=== PATIENT | female | born 1950 | race Caucasian/White ===

== ENCOUNTER 2019-02-23 09:19 | Day surgery (SDC) | payer OTHER ==
[2019-02-22 11:49] VITALS: BMI 27.3
[~2019-02-23 09:19] MED LIST: ACETAMINOPHEN 325 MG TABLET (FP) PO PRN; CYCLOPENTOLATE HCL 1% OPHTH SOLN 2 ML BOTTLE OP SCH; KETOROLAC TROMETHAMINE 0.5% EYE DROP 1 DROP DROPS OP SCH; OFLOXACIN 0.3% OPHTHALMIC SOLUTION 5 ML BOTTLE OP SCH; PHENYLEPHRINE 2.5% OPHTH SOLN 15 ML BOTTLE OP SCH; TROPICAMIDE 1% OPHTH SOLN 15 ML BOTTLE OP SCH
[2019-02-23 09:44] VITALS: TEMP 97.8
[2019-02-23] MEDS ORDERED: PHENYLEPHRINE 2.5% OPHTH SOLN 15 ML BOTTLE ONE (09:48)
[2019-02-23] MEDS ORDERED: TROPICAMIDE 1% OPHTH SOLN 15 ML BOTTLE ONE (09:48)
[2019-02-23] MEDS ORDERED: CYCLOPENTOLATE HCL 1% OPHTH SOLN 2 ML BOTTLE ONE (09:48)
[2019-02-23] MEDS ORDERED: OFLOXACIN 0.3% OPHTHALMIC SOLUTION 5 ML BOTTLE ONE (09:48)
[2019-02-23] MEDS ORDERED: KETOROLAC TROMETHAMINE 0.5% EYE DROP 1 DROP DROPS ONE (09:48)
[2019-02-23] MEDS ORDERED: TROPICAMIDE 1% OPHTH SOLN 15 ML BOTTLE OD ONE ×3 (09:55→10:14)
[2019-02-23] MEDS ORDERED: PHENYLEPHRINE 2.5% OPHTH SOLN 15 ML BOTTLE OD ONE ×3 (09:55→10:14)
[2019-02-23] MEDS ORDERED: OFLOXACIN 0.3% OPHTHALMIC SOLUTION 5 ML BOTTLE OD ONE ×3 (09:55→10:14)
[2019-02-23] MEDS ORDERED: KETOROLAC TROMETHAMINE 0.5% EYE DROP 1 DROP DROPS OD ONE ×3 (09:55→10:14)
[2019-02-23] MEDS ORDERED: CYCLOPENTOLATE HCL 1% OPHTH SOLN 2 ML BOTTLE OD ONE ×3 (09:55→10:13)
[2019-02-23] MEDS ORDERED: BUPIVACAINE HCL/PF 0.75% 10 ML VIAL ONE (11:07)
[2019-02-23] MEDS ORDERED: LIDOCAINE HCL/PF 2% SDV 5ML VIAL ONE (11:08)
[2019-02-23] MEDS ORDERED: LIDOCAINE HCL/PF 2% SDV 5ML VIAL INF ONE (11:23)
[2019-02-23] MEDS ORDERED: BUPIVACAINE HCL/PF 0.75% 10 ML VIAL NR ONE (11:23)
[2019-02-23] MEDS ORDERED: POVIDONE-IODINE 5% OPHTHALMIC PREP 30 ML SOLUTION OD ONE (11:24)
[2019-02-23] MEDS ORDERED: CHONDROITIN SU A/HYALUR SOD 1 KIT IO ONE (11:31)
[2019-02-23] MEDS ORDERED: BSS (NA/CA/MG/K) BALANCED SALT SOLUTION OPHTH SOLN 15 ML BOTTLE OD ONE (11:31)
[2019-02-23] MEDS ORDERED: LIDOCAINE HCL 1% PRESERVATIVE FREE - 30ML VIAL IO ONE (11:31)
[2019-02-23] MEDS ORDERED: EPINEPHrine/PF 1 MG/1 ML (1:1,000) AMPULE SQ ONE (11:35)
[2019-02-23] MEDS ORDERED: ONDANSETRON 4 MG/2 ML VIAL IVPUSH PRN (11:58)
[2019-02-23] MEDS ORDERED: LACTATED RINGERS SOLUTION 1,000 ML IV SCH (12:00)
--- NOTE | 2019-02-23 12:45 | SPEC ---
DATE OF OPERATION: PREOPERATIVE DIAGNOSIS: Cataract, right eye. POSTOPERATIVE DIAGNOSIS: Cataract, right eye. PROCEDURE: Phacoemulsification of right cataract with posterior chamber intraocular lens implantation. The lens used [id number], 23.5 diopter, serial No. [id number]. SURGEON: Ho Perry M.D. ANESTHESIA: Peribulbar/Modified Van Lint/MAC. COMPLICATIONS: None. DESCRIPTION OF PROCEDURE: The patient was brought to the operating room and correctly identified along with the operative site and a correct intraocular lens moore. The patient was then given a peribulbar block under sedation with 5 mL of a 1:1 mixture of 2% Lidocaine and 0.5% Bupivacaine. Two to 3 mL of the same mixture was given as a modified Van Lint block. The eye was then prepped and draped in the usual sterile fashion including 5% Betadine solution in the conjunctival sac and an eyelid drape. An eyelid speculum was then placed into the eye. A paracentesis port was created. Viscoelastic was injected to inflate the anterior chamber. A temporal clear corneal wound was created. A continuous circular capsulorrhexis was performed. The nucleus was then hydro-dissected and removed phacoemulsification via the cjnklm-[id number]-[id number] approach. The remaining cortical material was irrigated and aspirated from the eye. Viscoelastic was injected to inflate the capsular bag. The lens was injected into the capsular bag. Viscoelastic was then irrigated and aspirated from the eye. The intraocular lens was noted to be well centered and covered by the anterior capsular border. All wounds were found to be watertight. Topical Vancomycin was given. The eye patch and shield were placed. The patient was discharged from the operating room in stable condition. Alicia MULTANI/[id number]
[2019-02-23 13:18] VITALS: BP 115/65; PULSE 66
== END 2019-02-23 13:19 | disposition home or self-care (01) ==
LOC: JASU-SURG 09:19
PROVIDERS: ATTEND Ophthalmology
PROC: 08RJ3JZ Replacement of Right Lens with Synthetic Substitute, Percutaneous Approach (ICD-10-PCS; principal; 2019-02-23 11:00)
DX: H26.9 Unspecified cataract (principal)

== ENCOUNTER 2019-04-19 11:36 | Emergency (ER) | payer OTHER | END 2019-04-19 12:50 | disposition home or self-care (01) | LOC: JERFT 11:36 ==

== ENCOUNTER 2020-11-26 19:21 | Inpatient (IN) | payer OTHER ==
[2020-11-26 19:29] VITALS: BMI 24.5
[2020-11-26 20:19] LABS: HEMATOCRIT 33.5 % (32.4-45.2); HEMOGLOBIN 11.3 GM/dl (10.7-15.3); MCH 32.6 pg (25.7-33.7); MCHC 33.7 g/dl (32.0-36.0); MEAN CELL VOLUME 96.9 fl (80-96); MEAN PLT VOLUME 8.2 fl (7.5-11.1); PLATELET COUNT 235 K/MM3 (134-434); RBC 3.45 M/mm3 (3.60-5.2); RDW 16.5 % (11.6-15.6); WHITE BLOOD COUNT 13.8 K/mm3 (4.0-10.8)
[2020-11-26 20:29] LABS: ALBUMIN 3.1 g/dl (3.4-5.0); CALCIUM 8.9 mg/dl (8.5-10); CREATININE 1.1 mg/dl (0.55-1.3); POTASSIUM 2.6 mmol/L (3.5-5.1); TOT PROT 5.5 g/dl (6.4-8.2)
[2020-11-26 20:53] LABS: PLATELET ESTIMATE ADEQUATE
[2020-11-26] MEDS ORDERED: KCL 10 MEQ IVPB 10 MEQ/100 ML INFUS.BAG IVPB ONE ×2 (21:26→22:17)
[2020-11-26] MEDS ORDERED: KCL 10 MEQ IVPB 10 MEQ/100 ML INFUS.BAG IVPB SCH ×2 (21:30→22:30)
[2020-11-27 01:11] LABS: MAGNESIUM 2.3 mg/dL (1.8-2.4)
[2020-11-27 01:22] LABS: N-TERMINAL BNP 4379.8 pg/ml (5-125)
[2020-11-27 01:26] LABS: POTASSIUM 2.6 mmol/L (3.5-5.1)
[2020-11-27] MEDS ORDERED: POTASSIUM CHLORIDE 20 MEQ PREMIX IVPB 100 ML IVPB ONE (01:27)
[2020-11-27] MEDS: SODIUM CHLORIDE 1,000 ML IV SCH (01:44)
[2020-11-27 06:33] LABS: PH,URINE 6.5 (5.0-8.0); URINE APPEARANCE CLOUDY; URINE BILIRUBIN SMALL (NEGATIVE); URINE COLOR DK YELLOW; URINE GLUCOSE (UA) NEGATIVE (NEGATIVE); URINE KETONE NEGATIVE (NEGATIVE); URINE PROTEIN 30 (NEGATIVE)
[2020-11-27 06:34] LABS: EPI CELLS 2 /uL (0-25.1); URINE LEUK ESTERASE MODERATE (NEGATIVE); URINE NITRITE POS (NEGATIVE); URINE RBC 30 /uL (0-23.9); URINE WBC 375 /uL (0-25.8)
[2020-11-27 06:35] LABS: HYALINE CASTS 5 /uL (0-3.1); URINE BACTERIA 28849 /uL (0-1359)
[2020-11-27 06:54] LABS: BASO % 0.1 % (0-2.0); HEMATOCRIT 31.9 % (32.4-45.2); HEMOGLOBIN 10.8 GM/dL (10.7-15.3); LYMPH % 3.2 % (8-40); MCH 32.2 pg (25.7-33.7); MCHC 33.7 g/dl (32.0-36.0); MEAN CELL VOLUME 95.7 fl (80-96); MEAN PLT VOLUME 8.9 fl (7.5-11.1); MONO % 6.3 % (3.8-10.2); NEUT % 90.4 % (42.8-82.8); PLATELET COUNT 192 K/MM3 (134-434); RBC 3.34 M/mm3 (3.60-5.2); RDW 16.9 % (11.6-15.6); WHITE BLOOD COUNT 11.8 K/mm3 (4.0-10.0)
[2020-11-27 07:20] LABS: CALCIUM 7.7 mg/dL (8.5-10.1)
[2020-11-27 07:21] LABS: ALBUMIN 2.6 g/dl (3.4-5.0)
[2020-11-27 07:24] LABS: CREATININE 0.8 mg/dL (0.55-1.3)
[2020-11-27 07:25] LABS: BILIRUBIN,TOTAL 4.3 mg/dL (0.2-1); TOT PROT 5.2 g/dl (6.4-8.2)
[2020-11-27 07:54] LABS: BLOOD UREA NITROGEN 20.2 mg/dL (7-18)
[2020-11-27 08:08] LABS: POTASSIUM 2.4 mmol/L (3.5-5.1)
[2020-11-27] MEDS ORDERED: POTASSIUM CHLORIDE ORAL LIQUID 20 MEQ/15 ML PO ONE (08:11)
[2020-11-27] MEDS ORDERED: POTASSIUM CHLORIDE ORAL LIQUID 20 MEQ/15 ML ONE ×2 (08:23→08:27)
[2020-11-27] MEDS ORDERED: CLOPIDOGREL BISULFATE 300 MG TABLET PO ONE (09:51)
[2020-11-27] MEDS ORDERED: ASPIRIN 81 MG CHEWABLE TABLETS PO ONE ×2 (09:51→09:55)
[2020-11-27] MEDS ORDERED: CLOPIDOGREL BISULFATE 75 MG TABLET (FP) PO ONE (09:54)
[2020-11-27] MEDS ORDERED: ASPIRIN 81 MG CHEWABLE TABLETS ONE (09:55)
[2020-11-27] MEDS ORDERED: CLOPIDOGREL BISULFATE 75 MG TABLET (FP) ONE (09:55)
[2020-11-27] MEDS ORDERED: METOPROLOL TARTRATE 50 MG TABLET (FP) ONE (09:56)
[2020-11-27] MEDS ORDERED: ENOXAPARIN NA (PORCINE) 60 MG/0.6 ML DISP.SYRIN SQ ONE (09:56)
[2020-11-27] MEDS ORDERED: TAMSULOSIN HCL 0.4 MG CAP ONE (09:56)
[2020-11-27] MEDS: TAMSULOSIN HCL 0.4 MG CAP PO SCH (09:57)
[2020-11-27] MEDS: ASPIRIN 81 MG CHEWABLE TABLETS PO SCH (09:57)
[2020-11-27] MEDS ORDERED: HEPARIN NA (PORCINE) 5,000 UNITS/ML 1ML VIAL SQ SCH (10:00)
[2020-11-27] MEDS ORDERED: METOPROLOL TARTRATE 50 MG TABLET (FP) PO SCH (10:00)
[2020-11-27] MEDS ORDERED: ENOXAPARIN NA (PORCINE) 60 MG/0.6 ML DISP.SYRIN SQ SCH (10:00)
[2020-11-27] MEDS ORDERED: KCL 10 MEQ IVPB 10 MEQ/100 ML INFUS.BAG IVPB ONE (10:14)
[2020-11-27] MEDS: KCL 10 MEQ IVPB 10 MEQ/100 ML INFUS.BAG IVPB SCH ×3 (10:17→12:32)
[2020-11-27] MEDS: LEVOTHYROXINE NA 50 MCG TABLET (FP) PO SCH (10:36)
[2020-11-27] MEDS: ISOSORBIDE MONONITRATE 30 MG TAB.SR.24H (FP) PO SCH (10:36)
[2020-11-27] MEDS ORDERED: KCL 10 MEQ IVPB 20 MEQ/200 ML INFUS.BAG IVPB ONE (11:11)
[2020-11-27 11:31] LABS: MAGNESIUM 2.2 mg/dL (1.8-2.4)
[2020-11-27] MEDS ORDERED: cefTRIAXone SODIUM 1 GM VIAL ONE (14:00)
[2020-11-27] MEDS: CEFTRIAXONE 1 GM in DEXTROSE 5%-WATER - 50 ML IVPB SCH (15:11)
[2020-11-27] MEDS ORDERED: POTASSIUM CHLORIDE TABS 20 MEQ TABLET.ER (FP) PO ONE (19:50)
[2020-11-27] MEDS: LISINOPRIL 5 MG TABLET PO SCH (22:09)
[2020-11-27] MEDS: ATORVASTATIN CA 80 MG TABLET (FP) PO SCH (22:09)
[2020-11-27] MEDS: ENOXAPARIN NA (PORCINE) 60 MG/0.6 ML DISP.SYRIN SQ SCH (22:10)
[2020-11-27] MEDS: METOPROLOL TARTRATE 50 MG TABLET (FP) PO SCH (22:10)
[2020-11-28] MEDS: LEVOTHYROXINE NA 50 MCG TABLET (FP) PO SCH (06:06)
[2020-11-28] MEDS: METOPROLOL TARTRATE 50 MG TABLET (FP) PO SCH ×2 (06:06→15:08)
[2020-11-28] MEDS: SODIUM CHLORIDE 1,000 ML IV SCH (06:06)
[2020-11-28] MEDS: TAMSULOSIN HCL 0.4 MG CAP PO SCH (11:48)
[2020-11-28] MEDS: ENOXAPARIN NA (PORCINE) 60 MG/0.6 ML DISP.SYRIN SQ SCH ×2 (11:48→21:13)
[2020-11-28] MEDS: ASPIRIN 81 MG CHEWABLE TABLETS PO SCH (11:48)
[2020-11-28] MEDS: ISOSORBIDE MONONITRATE 30 MG TAB.SR.24H (FP) PO SCH (14:01)
[2020-11-28] MEDS: CEFTRIAXONE 1 GM in DEXTROSE 5%-WATER - 50 ML IVPB SCH (14:01)
[2020-11-28] MEDS: LISINOPRIL 5 MG TABLET PO SCH (14:01)
[2020-11-28] MEDS: METOPROLOL TARTRATE 25 MG TABLET (FP) PO SCH ×2 (14:36→21:13)
[2020-11-28] MEDS: DONEPEZIL HCL 10 MG TABLET (FP) PO SCH (18:37)
[2020-11-28] MEDS: CARBIDOPA/LEVODOPA 25/100 TABLET (FP) PO SCH ×2 (18:37→18:38)
[2020-11-28] MEDS: ATORVASTATIN CA 80 MG TABLET (FP) PO SCH (21:13)
[2020-11-29] MEDS: SODIUM CHLORIDE 1,000 ML IV SCH (01:20)
[2020-11-29 02:19] LABS: HEMOGLOBIN 9.4 GM/dL (10.7-15.3); MCH 32.9 pg (25.7-33.7); MCHC 33.5 g/dl (32.0-36.0); MEAN CELL VOLUME 98.4 fl (80-96); MEAN PLT VOLUME 8.9 fl (7.5-11.1); MONO % 4.8 % (3.8-10.2); NEUT % 92.2 % (42.8-82.8); PLATELET COUNT 209 K/MM3 (134-434); RBC 2.85 M/mm3 (3.60-5.2); RDW 17.9 % (11.6-15.6); WHITE BLOOD COUNT 13.4 K/mm3 (4.0-10.0)
[2020-11-29 02:21] LABS: ALBUMIN 2.4 g/dl (3.4-5.0); BILIRUBIN,TOTAL 5.1 mg/dL (0.2-1); BLOOD UREA NITROGEN 32.5 mg/dL (7-18); CREATININE 1.1 mg/dL (0.55-1.3); MAGNESIUM 2.3 mg/dL (1.8-2.4); POTASSIUM 3.4 mmol/L (3.5-5.1); TOT PROT 4.6 g/dl (6.4-8.2)
[2020-11-29 02:52] LABS: ANISOCYTOSIS 1+; MACROCYTOSIS 0; OVALOCYTE 1+; PLATELET ESTIMATE NORMAL
[2020-11-29] MEDS: METOPROLOL TARTRATE 25 MG TABLET (FP) PO SCH ×3 (06:51→21:42)
[2020-11-29] MEDS: LEVOTHYROXINE NA 50 MCG TABLET (FP) PO SCH (06:51)
[2020-11-29] MEDS: CARBIDOPA/LEVODOPA 25/100 TABLET (FP) PO SCH ×3 (06:51→17:04)
[2020-11-29] MEDS ORDERED: DEXTROSE 5%-WATER - 50 ML IVPB ONE (08:12)
[2020-11-29] MEDS ORDERED: cefTRIAXone SODIUM 1 GM VIAL ONE (08:13)
[2020-11-29 08:28] LABS: BASO % 0.3 % (0-2.0); HEMATOCRIT 27.3 % (32.4-45.2); HEMOGLOBIN 9.2 GM/dL (10.7-15.3); LYMPH % 3.4 % (8-40); MCH 32.9 pg (25.7-33.7); MCHC 33.7 g/dl (32.0-36.0); MEAN CELL VOLUME 97.6 fl (80-96); MEAN PLT VOLUME 8.9 fl (7.5-11.1); MONO % 5.1 % (3.8-10.2); NEUT % 91.2 % (42.8-82.8); PLATELET COUNT 198 K/MM3 (134-434); RDW 17.8 % (11.6-15.6); WHITE BLOOD COUNT 13.1 K/mm3 (4.0-10.0)
[2020-11-29 08:36] LABS: POTASSIUM 3.5 mmol/L (3.5-5.1)
[2020-11-29 08:50] LABS: ALBUMIN 2.2 g/dl (3.4-5.0); BLOOD UREA NITROGEN 33.4 mg/dL (7-18); CALCIUM 7.5 mg/dL (8.5-10.1)
[2020-11-29 08:53] LABS: CREATININE 0.9 mg/dL (0.55-1.3)
[2020-11-29 08:54] LABS: BILIRUBIN,TOTAL 5.2 mg/dL (0.2-1); TOT PROT 4.5 g/dl (6.4-8.2)
[2020-11-29] MEDS: CEFTRIAXONE 1 GM in DEXTROSE 5%-WATER - 50 ML IVPB SCH (09:16)
[2020-11-29] MEDS: LISINOPRIL 5 MG TABLET PO SCH (09:17)
[2020-11-29] MEDS: ENOXAPARIN NA (PORCINE) 60 MG/0.6 ML DISP.SYRIN SQ SCH ×2 (09:17→21:42)
[2020-11-29] MEDS: TAMSULOSIN HCL 0.4 MG CAP PO SCH (09:18)
[2020-11-29] MEDS: ASPIRIN 81 MG CHEWABLE TABLETS PO SCH (09:18)
[2020-11-29] MEDS: ISOSORBIDE MONONITRATE 30 MG TAB.SR.24H (FP) PO SCH (09:18)
[2020-11-29 10:24] LABS: ANISOCYTOSIS 1+; MACROCYTOSIS 0; PLATELET ESTIMATE NORMAL
[2020-11-29] MEDS: DONEPEZIL HCL 5 MG TABLET (FP) PO SCH (11:27)
[2020-11-29] MEDS: ATORVASTATIN CA 80 MG TABLET (FP) PO SCH (21:42)
[2020-11-30] MEDS: SODIUM CHLORIDE 1,000 ML IV SCH (06:05)
[2020-11-30] MEDS: METOPROLOL TARTRATE 25 MG TABLET (FP) PO SCH ×3 (06:06→21:00)
[2020-11-30] MEDS: LEVOTHYROXINE NA 50 MCG TABLET (FP) PO SCH (06:06)
[2020-11-30] MEDS: CARBIDOPA/LEVODOPA 25/100 TABLET (FP) PO SCH ×3 (06:06→17:18)
[2020-11-30] MEDS ORDERED: cefTRIAXone SODIUM 1 GM VIAL ONE (09:05)
[2020-11-30] MEDS ORDERED: DEXTROSE 5%-WATER - 50 ML IVPB ONE (09:05)
[2020-11-30] MEDS: ISOSORBIDE MONONITRATE 30 MG TAB.SR.24H (FP) PO SCH (09:46)
[2020-11-30] MEDS: TAMSULOSIN HCL 0.4 MG CAP PO SCH (09:46)
[2020-11-30] MEDS: ASPIRIN 81 MG CHEWABLE TABLETS PO SCH (09:46)
[2020-11-30] MEDS: LISINOPRIL 5 MG TABLET PO SCH (09:46)
[2020-11-30] MEDS: CEFTRIAXONE 1 GM in DEXTROSE 5%-WATER - 50 ML IVPB SCH (09:46)
[2020-11-30] MEDS: DONEPEZIL HCL 5 MG TABLET (FP) PO SCH (09:46)
[2020-11-30] MEDS ORDERED: NITROFURANTOIN MACROCRYSTAL 50 MG CAPSULE (FP) PO SCH (22:00)
[2020-12-01] MEDS: SODIUM CHLORIDE 1,000 ML IV SCH (01:26)
[2020-12-01] MEDS: LEVOTHYROXINE NA 50 MCG TABLET (FP) PO SCH (06:04)
[2020-12-01] MEDS: CARBIDOPA/LEVODOPA 25/100 TABLET (FP) PO SCH ×3 (06:04→17:02)
[2020-12-01] MEDS: METOPROLOL TARTRATE 25 MG TABLET (FP) PO SCH ×3 (06:04→21:22)
[2020-12-01 07:50] LABS: BASO % 0.1 % (0-2.0); HEMATOCRIT 24.5 % (32.4-45.2); HEMOGLOBIN 8.1 GM/dL (10.7-15.3); LYMPH % 3.4 % (8-40); MCH 33.2 pg (25.7-33.7); MCHC 33.2 g/dl (32.0-36.0); MEAN CELL VOLUME 99.9 fl (80-96); MEAN PLT VOLUME 9.3 fl (7.5-11.1); MONO % 4.1 % (3.8-10.2); NEUT % 92.4 % (42.8-82.8); PLATELET COUNT 159 K/MM3 (134-434); RBC 2.45 M/mm3 (3.60-5.2); RDW 18.7 % (11.6-15.6); WHITE BLOOD COUNT 12.1 K/mm3 (4.0-10.0)
[2020-12-01 08:42] LABS: BILIRUBIN,TOTAL 5.5 mg/dL (0.2-1)
[2020-12-01 08:43] LABS: BLOOD UREA NITROGEN 32.9 mg/dL (7-18); CREATININE 0.7 mg/dL (0.55-1.3)
[2020-12-01 08:44] LABS: PHOSPHOROUS 2.6 mg/dL (2.5-4.9)
[2020-12-01 08:45] LABS: ALBUMIN 2.1 g/dl (3.4-5.0); TOT PROT 4.1 g/dl (6.4-8.2)
[2020-12-01 08:47] LABS: MAGNESIUM 2.4 mg/dL (1.8-2.4)
[2020-12-01] MEDS: TAMSULOSIN HCL 0.4 MG CAP PO SCH (10:15)
[2020-12-01] MEDS: ASPIRIN 81 MG CHEWABLE TABLETS PO SCH (10:15)
[2020-12-01] MEDS: LISINOPRIL 5 MG TABLET PO SCH (10:15)
[2020-12-01] MEDS: ISOSORBIDE MONONITRATE 30 MG TAB.SR.24H (FP) PO SCH (10:15)
[2020-12-01] MEDS: DONEPEZIL HCL 5 MG TABLET (FP) PO SCH (10:16)
[2020-12-01 15:19] LABS: ANISOCYTOSIS 1+; MACROCYTOSIS 1+; OVALOCYTE 1+; PLATELET ESTIMATE DECREASED
[2020-12-02] MEDS: CARBIDOPA/LEVODOPA 25/100 TABLET (FP) PO SCH ×3 (07:01→18:15)
[2020-12-02] MEDS: METOPROLOL TARTRATE 25 MG TABLET (FP) PO SCH ×3 (07:01→22:32)
[2020-12-02] MEDS: LEVOTHYROXINE NA 50 MCG TABLET (FP) PO SCH (07:03)
[2020-12-02] MEDS: SODIUM CHLORIDE 1,000 ML IV SCH (09:40)
[2020-12-02] MEDS: ASPIRIN 81 MG CHEWABLE TABLETS PO SCH (11:53)
[2020-12-02] MEDS: DONEPEZIL HCL 5 MG TABLET (FP) PO SCH (11:53)
[2020-12-02] MEDS: LISINOPRIL 5 MG TABLET PO SCH (11:54)
[2020-12-02] MEDS: TAMSULOSIN HCL 0.4 MG CAP PO SCH (11:54)
[2020-12-02] MEDS: ISOSORBIDE MONONITRATE 30 MG TAB.SR.24H (FP) PO SCH (11:54)
[2020-12-02 16:33] LABS: BASO % 0.4 % (0-2.0); HEMATOCRIT 28.3 % (32.4-45.2); HEMOGLOBIN 9.2 GM/dL (10.7-15.3); LYMPH % 5.1 % (8-40); MCH 33.1 pg (25.7-33.7); MCHC 32.4 g/dl (32.0-36.0); MEAN PLT VOLUME 9.5 fl (7.5-11.1); MONO % 4.6 % (3.8-10.2); NEUT % 89.9 % (42.8-82.8); PLATELET COUNT 195 K/MM3 (134-434); RBC 2.77 M/mm3 (3.60-5.2); RDW 19.5 % (11.6-15.6); WHITE BLOOD COUNT 15.5 K/mm3 (4.0-10.0)
[2020-12-02 17:49] LABS: ANISOCYTOSIS 2+; MACROCYTOSIS 0; OVALOCYTE 1+; PLATELET ESTIMATE NORMAL
[2020-12-03] MEDS: METOPROLOL TARTRATE 25 MG TABLET (FP) PO SCH ×3 (08:10→21:54)
[2020-12-03] MEDS: LEVOTHYROXINE NA 50 MCG TABLET (FP) PO SCH (08:10)
[2020-12-03] MEDS: CARBIDOPA/LEVODOPA 25/100 TABLET (FP) PO SCH ×3 (08:10→18:14)
[2020-12-03 08:14] LABS: BASO % 0.3 % (0-2.0); LYMPH % 3.1 % (8-40); MCH 32.9 pg (25.7-33.7); MCHC 32.3 g/dl (32.0-36.0); MEAN CELL VOLUME 101.7 fl (80-96); MEAN PLT VOLUME 9.4 fl (7.5-11.1); MONO % 5.3 % (3.8-10.2); NEUT % 91.3 % (42.8-82.8); PLATELET COUNT 181 K/MM3 (134-434); RBC 2.75 M/mm3 (3.60-5.2); RDW 19.7 % (11.6-15.6)
[2020-12-03 08:40] LABS: POTASSIUM 4.2 mmol/L (3.5-5.1)
[2020-12-03 08:46] LABS: CALCIUM 8.6 mg/dL (8.5-10.1)
[2020-12-03 08:47] LABS: ALBUMIN 2.2 g/dl (3.4-5.0); BLOOD UREA NITROGEN 46.4 mg/dL (7-18); MAGNESIUM 2.7 mg/dL (1.8-2.4)
[2020-12-03 08:48] LABS: CREATININE 1.1 mg/dL (0.55-1.3)
[2020-12-03 08:49] LABS: BILIRUBIN,TOTAL 6.9 mg/dL (0.2-1)
[2020-12-03 08:50] LABS: PHOSPHOROUS 3.3 mg/dL (2.5-4.9); TOT PROT 4.5 g/dl (6.4-8.2)
[2020-12-03] MEDS ORDERED: REGADENOSON 0.4 MG/5 ML PRE-FILLED SYRINGE IVPUSH ONE ×2 (11:23→12:15)
[2020-12-03] MEDS: DONEPEZIL HCL 5 MG TABLET (FP) PO SCH (11:34)
[2020-12-03] MEDS: ASPIRIN 81 MG CHEWABLE TABLETS PO SCH (11:35)
[2020-12-03] MEDS: LISINOPRIL 5 MG TABLET PO SCH (11:36)
[2020-12-03] MEDS: ISOSORBIDE MONONITRATE 30 MG TAB.SR.24H (FP) PO SCH (11:36)
[2020-12-03] MEDS: TAMSULOSIN HCL 0.4 MG CAP PO SCH (11:36)
[2020-12-03 11:49] LABS: ANISOCYTOSIS 1+; MACROCYTOSIS 0; PLATELET ESTIMATE NORMAL
[2020-12-03] MEDS ORDERED: FUROSEMIDE 40 MG/4 ML INJECTABLE VIAL IVPUSH ONE (19:04)
[2020-12-04] MEDS: LEVOTHYROXINE NA 50 MCG TABLET (FP) PO SCH (06:58)
[2020-12-04] MEDS: CARBIDOPA/LEVODOPA 25/100 TABLET (FP) PO SCH (06:58)
[2020-12-04] MEDS: METOPROLOL TARTRATE 25 MG TABLET (FP) PO SCH (07:01)
[2020-12-04] MEDS: TAMSULOSIN HCL 0.4 MG CAP PO SCH (09:14)
[2020-12-04] MEDS: ASPIRIN 81 MG CHEWABLE TABLETS PO SCH (09:14)
[2020-12-04] MEDS: ISOSORBIDE MONONITRATE 30 MG TAB.SR.24H (FP) PO SCH (09:14)
[2020-12-04] MEDS: DONEPEZIL HCL 5 MG TABLET (FP) PO SCH (09:14)
[2020-12-04] MEDS: LISINOPRIL 5 MG TABLET PO SCH (09:14)
[2020-12-04] MEDS ORDERED: CLOPIDOGREL BISULFATE 75 MG TABLET (FP) PO SCH (10:00)
[2020-12-04 10:14] LABS: HEMATOCRIT 28.8 % (32.4-45.2); HEMOGLOBIN 9.2 GM/dL (10.7-15.3); LYMPH % 6.2 % (8-40); MCH 33.8 pg (25.7-33.7); MEAN CELL VOLUME 105.6 fl (80-96); MONO % 4.5 % (3.8-10.2); NEUT % 89.3 % (42.8-82.8); PLATELET COUNT 174 K/MM3 (134-434); RBC 2.72 M/mm3 (3.60-5.2); RDW 21.5 % (11.6-15.6); WHITE BLOOD COUNT 17.7 K/mm3 (4.0-10.0)
[2020-12-04 10:39] LABS: POTASSIUM 4.7 mmol/L (3.5-5.1)
[2020-12-04 10:56] LABS: MAGNESIUM 2.8 mg/dL (1.8-2.4)
[2020-12-04 10:57] LABS: ALBUMIN 2.3 g/dl (3.4-5.0); CREATININE 1.4 mg/dL (0.55-1.3)
[2020-12-04 10:58] LABS: BILIRUBIN,TOTAL 7.3 mg/dL (0.2-1); CALCIUM 8.9 mg/dL (8.5-10.1); PHOSPHOROUS 3.9 mg/dL (2.5-4.9)
[2020-12-04 11:00] LABS: TOT PROT 4.5 g/dl (6.4-8.2)
[2020-12-04 11:19] VITALS: BP 122/64; PULSE 98; TEMP 98.5
[2020-12-04 12:06] LABS: ANISOCYTOSIS 1+; MACROCYTOSIS 2+; PLATELET ESTIMATE NORMAL
== END 2020-12-04 13:20 | disposition expired ==
LOC: FER 19:21 → J6WEST-2 11-27 20:28
PROVIDERS: ADMIT Internal Medicine; ATTEND Internal Medicine
PROC: 5A1935Z Respiratory Ventilation, Less than 24 Consecutive Hours (ICD-10-PCS; principal; 2020-12-04)
PROC: 0BH17EZ Insertion of Endotracheal Airway into Trachea, Via Natural or Artificial Opening (ICD-10-PCS; 2020-12-04)
DX: I21.4 Non-ST elevation (NSTEMI) myocardial infarction (principal); J96.90 Respiratory failure, unspecified, unspecified whether with hypoxia or hypercapnia; N39.0 Urinary tract infection, site not specified; C78.00 Secondary malignant neoplasm of unspecified lung; I50.22 Chronic systolic (congestive) heart failure; C78.7 Secondary malignant neoplasm of liver and intrahepatic bile duct; E87.0 Hyperosmolality and hypernatremia; E87.1 Hypo-osmolality and hyponatremia; E87.6 Hypokalemia; I25.10 Atherosclerotic heart disease of native coronary artery without angina pectoris; I10 Essential (primary) hypertension; I46.9 Cardiac arrest, cause unspecified; C50.919 Malignant neoplasm of unspecified site of unspecified female breast; G20 Parkinson's disease; E78.5 Hyperlipidemia, unspecified; D64.9 Anemia, unspecified; Z95.1 Presence of aortocoronary bypass graft; D72.829 Elevated white blood cell count, unspecified; R74.01 Elevation of levels of liver transaminase levels; E03.9 Hypothyroidism, unspecified
CPT/HCPCS: 36415; 70551-TC; 71045-TC-FY; 71250-TC; 74177-TC; 78452-TC; 80053; 81003; 82272; 82550; 82553; 83690; 83735; 83880; 84100; 84132; 84484; 85025; 87040; 87086; 87186; 93005; 93010; 93017; 93306-TC; 99285-25; A9502; C9803; J2785; Q9967; U0003